=== PATIENT | male | born 1995 | race Caucasian/White ===

== ENCOUNTER → 2019-12-17 10:37 | Outpatient (CLI) | payer OTHER, SELFPAY ==
[2019-12-17 10:32] VITALS: BMI 27.9
--- NOTE | 2019-12-17 10:38 | RAD_ITS ---
STUDY: X-RAY - PELVIS AND RIGHT HIP REASON FOR EXAM: Male, 24 years old. SHARP PAINS IN RIGHT HIP FOR A COUPLE OF MONTHS. NO KNOWN INJURY. TECHNIQUE: 3 views of the pelvis and hip. COMPARISON: None. FINDINGS: There is a non-specific bowel gas pattern. There is a right-sided calcified phlebolith. Normal bilateral iliac wings, sacroiliac joints and visualized sacrum. Normal bilateral superior and inferior pubic rami. Normal pubic symphysis. Normal bilateral ischial tuberosities. There is a small spur along the lateral aspect of the right femoral head. Normal acetabulum. Normal hip joint. RAD/HIP, UNI W/ Pelvis 2-3 Views IMPRESSION: Small spur along the lateral aspect of the right femoral head. Electronically Signed: Je Dodge, at 11:03 EDT , Service support ,
== END ==
PROVIDERS: PCP Physician Assistant; Referring Provider Orthopaedic Surgery; Visit Provider Orthopaedic Surgery
DX: M25.551 Pain in right hip (principal)
CPT/HCPCS: 73502

== ENCOUNTER 2021-12-13 22:35 | Emergency (ER) | payer OTHER, SELFPAY ==
[2021-12-13 22:36] VITALS: BP 109/89; PULSE 101; RESP 16; TEMP 36.6; O2SAT 98; BMI 28.7
--- NOTE | 2021-12-13 22:45 | CT_ITS ---
STUDY: CT LUMBAR SPINE WITHOUT CONTRAST REASON FOR EXAM: Male, 26 years old. Trauma RADIATION DOSAGE (If Supplied By Facility): CTDIvol = ( 21.75 ) mGy, DLP = ( 1303.72 ) mGycm TECHNIQUE: The patient was scanned in a multi detector CT scanner. High resolution transaxial imaging was performed. Images were obtained from T11 to coccyx. Sagittal and coronal images were reconstructed. Individualized dose optimization techniques were used for this CT. COMPARISON: None FINDINGS: ALIGNMENT: No subluxation. MINERALIZATION: Normal. VERTEBRAL BODIES: No fracture or acute abnormality. DISC SPACES: Unremarkable. POSTERIOR ELEMENTS: Unremarkable. SPINAL CANAL: Maintained. PARASPINAL SOFT TISSUES: Unremarkable. OTHER: Degenerative changes of the sacroiliac joints greater on the right. CT/Spine Lumbar without Contrast IMPRESSION: No evidence of fracture or subluxation. Electronically Signed: Laine Bergman MD at 23:25 EDT ,
--- NOTE | 2021-12-13 22:45 | RAD_ITS ---
STUDY: X-RAY - PELVIS AND LEFT HIP REASON FOR EXAM: Male, 26 years old. Trauma TECHNIQUE: 3 views of the pelvis and hip. COMPARISON: Pelvis and right hip x-rays 12/17/2019. FINDINGS: No fracture demonstrated. Femoral heads are normal contour. No dislocation at the hips. RAD/HIP, UNI W/ Pelvis 2-3 Views IMPRESSION: No evidence of fracture. Electronically Signed: Laine Bergman MD at 23:40 EDT ,
--- NOTE | 2021-12-13 22:48 | EDS_ITS ---
HPI HPI - Fall History of Present Illness Chief Complaint: Fall Narrative Narrative: Patient presents with lower back pain and left hip pain after falling off a ladder. He may have been anywhere from 7 to 10 feet high, but he was not standing at the very top of a 10 foot ladder. He states that he was cleaning out the gutters this afternoon at around 3 PM, almost 8 hours ago. He fell onto his left side onto the flower bed and half onto the grass. He was able to ambulate afterwards. While he may have struck his head lightly and felt that resolved. He denies any neck pain. He has pain in his lumbar spine and diffusely throughout his left hip where he states the muscles feel tight. He took 800 mg of ibuprofen prior to arrival. His girlfriend was concerned that there may have been swelling in the lumbar spine area. Pain is worse with movement and relieved by lying still. He denies any problems with bowel or bladder or problems with bowel movements. No loss of bowel or bladder, no saddle anesthesia. [facility] Medical History (Updated 12/13/21 @ 23:38 by Ismael De Jesus MD) Anxiety Depression Home Medications escitalopram oxalate 20 mg tablet 20 mg PO DAILY 12/17/19 [History Last Taken Unknown] Allergy/AdvReac Type Severity Reaction Status Date / Time No Known Allergies Allergy Verified 12/13/21 22:38 Surgical History (Updated 12/13/21 @ 22:50 by Nurys Pena) H/O right knee surgery Social History Smoking Status: Former smoker ROS ROS ED ROS Narrative Constitutional: No fever, no chills. HEENT: No sore throat. No neck pain. No loss of vision. No rhinorrhea. Cardiovascular: No chest pain. No palpitations. No pedal edema. Respiratory: No cough, no shortness of breath. Abdominal: No abdominal pain. No nausea. No vomiting. Genitourinary: No dysuria. No hematuria. Musculoskeletal: No myalgias. No arthralgias. Positive for lumbar pain. Worse with movement. Diffuse left hip pain. Neurologic: No headaches. No dizziness. No lightheadedness. Skin: No rash. No change in color. Psychiatric: No depression. No anxiety. EXAM Physical Exam Narrative Exam Narrative: Afebrile. Vital signs noted. GCS 15. ABCs are intact. HEENT: Normocephalic. Atraumatic. PERRL, EOMI. Neck soft and supple. No point tenderness or step off. Cardiovascular: Regular rate and rhythm. No murmurs, rubs, or gallops appreciated. Respiratory: No tachypnea. Lungs clear to auscultation bilaterally. Gastrointestinal: Abdomen soft, nontender, with normoactive bowel sounds. No rebound or guarding. Neurological: Awake. Alert. Nonfocal, nonlateralizing. Skin: No rash. Normal color. No pallor. Musculoskeletal: No pedal edema. Full range of motion extremities. Pelvis stable. No pain with logrolling of left femur. Flexion and extension mechanisms of knees bilaterally intact. Able to raise each individual leg off bed without difficulty. DTRs equal and symmetric. EHL intact bilaterally. Straight leg raising negative bilaterally. Diffuse tenderness to palpation lumbar spine without step-off. No pain in sciatic notch bilaterally. Const Vital Signs: 12/13/21 22:36 12/13/21 23:14 Temperature 97.8 F Temperature Source Temporal Pulse Rate 101 H Respiratory Rate 16 Respiratory Effort Normal Respiratory Depth Normal Respiratory Pattern Normal Blood Pressure 109/89 H Blood Pressure Mean 95 Pulse Ox 98 Oxygen Delivery Method Room Air MDM MDM MDM Narrative Medical decision making narrative: Patient appears to have a normal neurological examination to the bilateral lower extremities. I will obtain x-ray of the left hip with pelvis, along with CT of the lumbar spine. CT of the lumbar spine shows no evidence of of fracture or subluxation. X-ray of the left hip and pelvis interpreted by myself shows no evidence of fracture of the pelvis or of the hip. At this point in time, I do feel he can be discharged safely home with follow-up. He had no pain in the sacral area it was mainly his low back with which she was concerned. He will take [id number] medications for analgesia and apply ice to the affected areas. He will follow-up with his primary care physician. Return instructions to the emergency department were reviewed. Disposition is discharged home in stable condition. Radiography Diagnostic Testing: Clinical Impression(s) from Imaging Studies Hip/Pelvis X-Ray 12/13/21 22:45 IMPRESSION: No evidence of fracture. Electronically Signed: Laine Bergman MD at 23:40 EDT , Lumbar Spine CT 12/13/21 22:45 IMPRESSION: No evidence of fracture or subluxation. Electronically Signed: Laine Bergman MD at 23:25 EDT , Discharge Plan Triage Chief Complaint: Fall ED Provider: Ismael De Jesus Dx/Rx/DC Orders Clinical Impression: Fall from ladder, Lumbar contusion, Low back sprain, Contusion of hip, left Instructions: ED Back Sprain/Strain, ED Back Contusion, ED Hip Contusion, ED Fall Prevention Prescriptions: No Action escitalopram oxalate 20 mg tablet 20 mg PO DAILY RF: 0 Primary Care Provider: Rafael Stoddard Referrals: Rafael Stoddard MD [Primary Care Provider] - 3-5 Days if not improving Activity Restrictions/Additional Instructions: Your CT of your lumbar spine/low back did not show any evidence of fracture today. Your hip and pelvis x-ray also did not show any fracture. Take [id number] analgesics as needed. Follow-up with your doctor in the next 3 to 5 days if not improving. Disposition Disposition: Home, Self Care
[2021-12-13 23:48] VITALS: BP 109/89; PULSE 100; RESP 16; O2SAT 98
== END 2021-12-13 23:49 | disposition home or self-care (01) ==
PROVIDERS: Emergency Provider Emergency Medicine; PCP Family Medicine; Visit Provider Emergency Medicine
DX: S33.5XXA Sprain of ligaments of lumbar spine, initial encounter (principal); S30.0XXA Contusion of lower back and pelvis, initial encounter; S70.02XA Contusion of left hip, initial encounter; W11.XXXA Fall on and from ladder, initial encounter; Y93.H9 Activity, other involving exterior property and land maintenance, building and construction; Z87.891 Personal history of nicotine dependence
CPT/HCPCS: 72131; 73502; 99282